=== PATIENT | female | born 1940 | race Caucasian/White ===

== ENCOUNTER → 2016-09-17 | Outpatient (CLI) | payer OTHER ==
[~2016-09-17] MED LIST: ASPI-1077 PO; CALC-226 PO; CLID1CAP PO; CLIN-77 PO; COR25 PO; DIAZ-60 PO; DOCU250C71 PO; DOXY100T2 PO; ELA50 PO; FLEC50TA2 PO; HYDR-4100 PO; LACT1CAP55 PO; LANS30CA10 PO; LEVO150T PO; LIP10 PO; LORA5SOL7 PO; MOME17SP NS; MULT-1089 PO; OMEG300C3 PO; RANI300T7 PO; SACU1TAB PO
== END | disposition home or self-care (01) ==
LOC: SCT 14:21
PROVIDERS: ATTEND Internal Medicine
DX: M26.602 Left temporomandibular joint disorder, unspecified (principal); I10 Essential (primary) hypertension; I48.0 Paroxysmal atrial fibrillation; Z85.89 Personal history of malignant neoplasm of other organs and systems
CPT/HCPCS: 70486-TC; 93306

== ENCOUNTER 2017-12-11 11:17 | Outpatient (CLI) | payer OTHER ==
[~2017-12-11 11:17] MED LIST changes: -CALC-226 PO; +CALC-823 PO; -CLIN-77 PO; +CLIN300C11 PO; +CULTURELLE CAP1 EACH PO; -DIAZ-60 PO; +DIAZ5TAB PO; -LACT1CAP55 PO; -LANS30CA10 PO; +LANS30CA53 PO
[2017-12-11] MEDS ORDERED: DIATR MEGLU/DIATRIZ SOD 30 ML SOLUTION PO ONE (11:41)
== END 2017-12-11 19:43 | disposition home or self-care (01) ==
LOC: SCT 11:17
PROVIDERS: ATTEND Internal Medicine
DX: N20.0 Calculus of kidney (principal); N28.1 Cyst of kidney, acquired; M41.80 Other forms of scoliosis, site unspecified; M47.899 Other spondylosis, site unspecified; F15.90 Other stimulant use, unspecified, uncomplicated; Z72.89 Other problems related to lifestyle
CPT/HCPCS: 74176; Q9964